=== PATIENT | female | born 1955 | race African-American/Black ===

== ENCOUNTER 2017-04-29 05:42 | Day surgery (SDC) | payer OTHER ==
[~2017-04-29] VITALS: Ht 162.6 cm; Wt 66.4 kg
[~2017-04-29 05:42] MED LIST: CHL25 PO; CHOL20004 PO; CITA20TA9 PO; FentaNYL CITRATE-PF 100 MCG/2 ML VIAL IVP ONE; LISI40TA4 PO; MIDAZOLAM HCL 2 MG/2 ML VIAL IVP ONE; PRAZ2 PO; SIMV40TA5 PO; [UNRECOGNIZED DRUG - CODE] PO
[2017-04-29] MEDS ORDERED: RINGERS SOLUTION,LACTATED 500 ML IV ONE ×2 (05:57→07:00)
[2017-04-29] MEDS ORDERED: DICLOFENAC SODIUM 0.1% 2.5 ML OPHTHALMIC SOLUTION ONE (05:59)
[2017-04-29] MEDS ORDERED: CYCLOPENTOLATE HCL 2% 2 ML OPHTHALMIC SOLUTION ONE (05:59)
[2017-04-29] MEDS ORDERED: TETRACAINE HCL/PF 0.5% 4 ML OPHTHALMIC SOLUTION ONE (06:00)
[2017-04-29] MEDS ORDERED: MOXIFLOXACIN HCL 0.5% 3 ML OPHTHALMIC SOLUTION ONE (06:01)
[2017-04-29] MEDS ORDERED: PHENYLEPHRINE HCL 2.5% 2 ML OPHTHALMIC SOLUTION ONE (06:01)
[2017-04-29] MEDS ORDERED: ARIP5TAB9 PO (06:44)
[2017-04-29] MEDS ORDERED: ASPI-1093 PO (06:44)
[2017-04-29] MEDS ORDERED: PrednisoLONE ACETATE 1% 5 ML OPHTHALMIC SUSPENSION ONE (06:48)
[2017-04-29] MEDS: TETRACAINE HCL/PF 0.5% 4 ML OPHTHALMIC SOLUTION OD SCH ×3 (06:51→07:03)
[2017-04-29] MEDS: DICLOFENAC SODIUM 0.1% 2.5 ML OPHTHALMIC SOLUTION OD SCH ×3 (06:51→07:03)
[2017-04-29] MEDS: CYCLOPENTOLATE HCL 2% 2 ML OPHTHALMIC SOLUTION OD SCH ×3 (06:51→07:03)
[2017-04-29] MEDS: MOXIFLOXACIN HCL 0.5% 3 ML OPHTHALMIC SOLUTION OD SCH ×3 (06:51→07:03)
[2017-04-29] MEDS: PHENYLEPHRINE HCL 2.5% 2 ML OPHTHALMIC SOLUTION OD SCH ×3 (06:51→07:03)
[2017-04-29] MEDS ORDERED: ACETAMINOPHEN 325 MG TABLET PO PRN (07:00)
[2017-04-29] MEDS ORDERED: HYALURONATE SOD/CHONDROITIN SOD 0.5 ML VIAL IO ONE (22:16)
[2017-04-29] MEDS ORDERED: LIDOCAINE HCL 1% 20 ML VIAL ONE (22:16)
[2017-04-29] MEDS ORDERED: POVIDONE-IODINE 10% 15 ML SOLUTION UD ONE (22:16)
[2017-04-29] MEDS ORDERED: NEOMYCIN/POLYMYXIN B/DEXAMETH 3.5 GM OPHTHALMIC OINTMENT ONE (22:16)
[2017-04-29] MEDS ORDERED: HYALURONATE SODIUM 12 MG/ML 0.8 ML SYRINGE IO ONE (22:16)
[2017-04-29] MEDS ORDERED: BALANCED SALT 15 ML OPHTHALMIC IRRIG.SOLN ONE (22:16)
[2017-04-29] MEDS ORDERED: EPINEPHrine 1:10,000 [1 MG/10 ML] SYRINGE ONE (22:16)
[2017-04-29] MEDS ORDERED: PredniSONE 10 MG TABLET ONE (22:16)
== END 2017-04-29 09:10 | disposition home or self-care (01) ==
LOC: SURGERY 05:42
PROVIDERS: ATTEND Ophthalmology
DX: H25.11 Age-related nuclear cataract, right eye (principal); H35.30 Unspecified macular degeneration; J45.909 Unspecified asthma, uncomplicated; I10 Essential (primary) hypertension; F17.200 Nicotine dependence, unspecified, uncomplicated; E66.01 Morbid (severe) obesity due to excess calories; Z72.89 Other problems related to lifestyle; Z98.890 Other specified postprocedural states
CPT/HCPCS: 66984; 93005; C1780; J0171; J2250; J3010; J3490 ×2; J7120; J7512

== ENCOUNTER 2017-08-05 06:24 | Day surgery (SDC) | payer OTHER ==
[~2017-08-05] VITALS: Ht 162.6 cm; Wt 62.7 kg
[~2017-08-05 06:24] MED LIST changes: +ARIP5TAB8 PO; +ASPI-1182 PO; -CHL25 PO; -CITA20TA9 PO; +CITA40TA6 PO; +CYCLOPENTOLATE HCL 2% 2 ML OPHTHALMIC SOLUTION ONE; +DICLOFENAC SODIUM 0.1% 2.5 ML OPHTHALMIC SOLUTION ONE; -FentaNYL CITRATE-PF 100 MCG/2 ML VIAL IVP ONE; -LISI40TA4 PO; -MIDAZOLAM HCL 2 MG/2 ML VIAL IVP ONE; +MOXIFLOXACIN HCL 0.5% 3 ML OPHTHALMIC SOLUTION ONE; +PHENYLEPHRINE HCL 2.5% 2 ML OPHTHALMIC SOLUTION ONE; +RINGERS SOLUTION,LACTATED 500 ML IV ONE; +TETRACAINE HCL/PF 0.5% 4 ML OPHTHALMIC SOLUTION ONE; -[UNRECOGNIZED DRUG - CODE] PO
[2017-08-05] MEDS ORDERED: MIDAZOLAM HCL 2 MG/2 ML VIAL IVP ONE (06:25)
[2017-08-05] MEDS ORDERED: FentaNYL CITRATE-PF 100 MCG/2 ML VIAL IVP ONE (06:25)
[2017-08-05] MEDS ORDERED: ACETAMINOPHEN 325 MG TABLET PO PRN (07:00)
[2017-08-05] MEDS: MOXIFLOXACIN HCL 0.5% 3 ML OPHTHALMIC SOLUTION OS SCH ×3 (07:06→07:19)
[2017-08-05] MEDS: TETRACAINE HCL/PF 0.5% 4 ML OPHTHALMIC SOLUTION OS SCH ×3 (07:06→07:19)
[2017-08-05] MEDS: CYCLOPENTOLATE HCL 2% 2 ML OPHTHALMIC SOLUTION OS SCH ×3 (07:06→07:19)
[2017-08-05] MEDS: DICLOFENAC SODIUM 0.1% 2.5 ML OPHTHALMIC SOLUTION OS SCH ×3 (07:07→07:19)
[2017-08-05] MEDS: PHENYLEPHRINE HCL 2.5% 2 ML OPHTHALMIC SOLUTION OS SCH ×3 (07:07→07:19)
[2017-08-05] MEDS ORDERED: EPINEPHrine 1:1,000 [1 MG/ML] AMP IM ONE (12:00)
[2017-08-05] MEDS ORDERED: POVIDONE-IODINE 10% 15 ML SOLUTION UD TP ONE (12:00)
[2017-08-05] MEDS ORDERED: HYALURONATE SOD/CHONDROITIN SOD 0.5 ML VIAL IO ONE (12:00)
[2017-08-05] MEDS ORDERED: NEOMYCIN/POLYMYXIN B/DEXAMETH 3.5 GM OPHTHALMIC OINTMENT OS ONE (12:00)
[2017-08-05] MEDS ORDERED: LIDOCAINE HCL/PF 1% 2 ML VIAL INJ ONE (12:00)
[2017-08-05] MEDS ORDERED: TETRACAINE HCL/PF 0.5% 4 ML OPHTHALMIC SOLUTION OS ONE (12:00)
[2017-08-05] MEDS ORDERED: HYALURONATE SODIUM 12 MG/ML 0.8 ML SYRINGE IO ONE (12:00)
== END 2017-08-05 09:00 | disposition home or self-care (01) ==
LOC: SURGERY 06:24
PROVIDERS: ATTEND Ophthalmology
DX: H25.12 Age-related nuclear cataract, left eye (principal); H40.9 Unspecified glaucoma; I10 Essential (primary) hypertension; J44.9 Chronic obstructive pulmonary disease, unspecified; H35.30 Unspecified macular degeneration; F32.9 Major depressive disorder, single episode, unspecified; F41.9 Anxiety disorder, unspecified; F17.210 Nicotine dependence, cigarettes, uncomplicated; Z79.82 Long term (current) use of aspirin; Z72.89 Other problems related to lifestyle; Z98.41 Cataract extraction status, right eye; Z98.890 Other specified postprocedural states
CPT/HCPCS: 66984; C1780; J0171; J2250; J3010; J3490 ×2; J7120